=== PATIENT | male | born 1990 | race Caucasian/White ===

== ENCOUNTER 2022-10-23 19:30 | Emergency (ER) | payer MEDICAID ==
[~2022-10-23] VITALS: Ht 175.3 cm; Wt 109.8 kg
--- NOTE | 2022-10-23 19:30 | NUR ---
Patient lying in bed, awake, chest rise and fall symmetrical, no s/s of distress.
[2022-10-23 19:34] VITALS: BP 123/86
--- NOTE | 2022-10-23 19:34 | NUR ---
PT LOI ALS. TAKEN TO BED 2
--- NOTE | 2022-10-23 21:00 | NUR ---
Patient lying in bed, awake, chest rise and fall symmetrical, no s/s of distress. Addendum: 10/24/22 at 0025 by [email or web address] Patient lying in bed, resting with eyes closed, chest rise and fall symmetrical, no s/s of distress, pt on monitor.
--- NOTE | 2022-10-23 22:22 | NUR ---
Charisma pendleton in ED - 10/23/22 at 2222 by [email or web address] Patient lying in bed, A/Ox4, chest rise and fall symmetrical, no s/s of distress.
--- NOTE | 2022-10-23 22:22 | NUR ---
Note undone in [facility] - 10/24/22 at 0024 by [email or web address] Patient lying in bed, awake, chest rise and fall symmetrical, no s/s of distress. Addendum: 10/23/22 at 2223 by [email or web address] Amendment undphilip in [facility] - 10/24/22 at 0024 by [email or web address] Patient lying in bed, resting with eyes closed, chest rise and fall symmetrical, no s/s of distress.
--- NOTE | 2022-10-23 22:23 | NUR ---
Patient lying in bed, resting with eyes closed, chest rise and fall symmetrical, no s/s of distress, pt on monitor.
--- NOTE | 2022-10-24 00:25 | NUR ---
Patient lying in bed, resting with eyes closed, chest rise and fall symmetrical, no s/s of distress, pt on monitor.
--- NOTE | 2022-10-24 02:15 | NUR ---
Patient lying in bed, resting with eyes closed, chest rise and fall symmetrical, no s/s of distress, pt on monitor.
--- NOTE | 2022-10-24 04:38 | NUR ---
Patient lying in bed, resting with eyes closed, chest rise and fall symmetrical, no s/s of distress, pt on monitor.
[2022-10-24 05:14] VITALS: BP 131/82
--- NOTE | 2022-10-24 05:14 | NUR ---
Patient discharged with v/s stable. Written and verbal after care instructions given and explained. Patient verbalized understanding. Ambulatory with steady gait. All questions addressed prior to discharge. Advised to follow up with PMD.
[2022-10-26 12:07] LABS: HEPATITIS A ANTIBODY IGM Negative (Negative); HEPATITIS B CORE AB TOTAL Negative (Negative); HEPATITIS B SURFACE ANTIBODY Reactive (.); HEPATITIS B SURFACE ANTIGEN Negative (Negative)
== END 2022-10-24 05:14 | disposition home or self-care (01) ==
LOC: EDBD 19:30 → MED 19:30
DX: T40.411A Poisoning by fentanyl or fentanyl analogs, accidental (unintentional), initial encounter (principal); F17.210 Nicotine dependence, cigarettes, uncomplicated; F12.90 Cannabis use, unspecified, uncomplicated; Y92.89 Other specified places as the place of occurrence of the external cause
CPT/HCPCS: 36415; 86704; 86706; 86708; 86709; 86803; 87340; 99285